=== PATIENT | female | born 1990 | race Caucasian/White ===

== ENCOUNTER 2017-01-26 12:15 | Emergency (ER) | payer OTHER ==
[~2017-01-26] VITALS: Ht 167.6 cm; Wt 79.4 kg
[~2017-01-26 12:15] MED LIST: ACETAMINOPHEN-1 EAC1 PO; AMOXICILLIN 50500 M1 PO; APAP500 PO; BACTRIM DS TAB1 EACH PO; CALAMINE180 ML TP; CIPROFLOXACIN500 M1 PO; CLARITIN10 M2 PO; DOXYCYCLINE 10100 MG PO; FLAGYL500 MG PO; FLEXERIL PO; HYDROCODONE-AP1 EAC6 PO; IBUPROFEN 600600 M1 PO; IBUPROFEN 800800 M1 PO; KEFLEX500 MG PO; LANOLIN56 GM; MACROBID 100 M100 M1 PO; NOHOMEMEDICATIONS; NORCO 5-325 TA1 EACH PO; PERCOCET 5-3251 EACH PO; PHENERGAN 25 MG25 M1 PO; PRENATAL PO; PYRIDIUM200 MG PO; TRAMADOL 50 MG50 MG PO; TUCKS MEDICATE1 EAC1; ULTRAM 50MG TAB50 MG PO; VALIUM2 MG PO; VICODIN 5-5001 EACH PO
[2017-01-26 12:18] VITALS: BP 135/90
== END 2017-01-26 12:41 | disposition left against medical advice (07) ==
LOC: ER 12:15
DX: O26.892 Other specified pregnancy related conditions, second trimester (principal); R35.0 Frequency of micturition; R10.9 Unspecified abdominal pain; M54.5 Low back pain; F17.210 Nicotine dependence, cigarettes, uncomplicated; Z3A.25 25 weeks gestation of pregnancy; Z98.890 Other specified postprocedural states

== ENCOUNTER 2017-07-09 02:23 | Emergency (ER) | payer OTHER ==
[~2017-07-09] VITALS: Ht 167.6 cm; Wt 72.6 kg
[2017-07-09 02:29] VITALS: BP 141/101
[2017-07-09] MEDS ORDERED: NORCO 5-325 TA1 EACH PO (02:36)
[2017-07-09] MEDS ORDERED: PENICILLIN VK500 M1 PO (02:36)
== END 2017-07-09 02:46 | disposition home or self-care (01) ==
LOC: ER 02:23
DX: K02.9 Dental caries, unspecified (principal); K04.7 Periapical abscess without sinus; F17.210 Nicotine dependence, cigarettes, uncomplicated

== ENCOUNTER 2017-07-09 23:45 | Emergency (ER) | payer OTHER ==
[~2017-07-09] VITALS: Ht 167.6 cm; Wt 68.0 kg
[~2017-07-09 23:45] MED LIST changes: +PENICILLIN VK500 M1 PO
[2017-07-09 23:48] VITALS: BP 156/109
== END 2017-07-10 00:28 | disposition home or self-care (01) ==
LOC: ER 23:45
DX: K02.9 Dental caries, unspecified (principal); K04.7 Periapical abscess without sinus; F17.210 Nicotine dependence, cigarettes, uncomplicated; Z90.89 Acquired absence of other organs

== ENCOUNTER 2017-12-17 04:14 | Emergency (ER) | payer OTHER ==
[~2017-12-17] VITALS: Ht 167.6 cm; Wt 67.6 kg
[2017-12-17 04:20] VITALS: BP 125/89
[2017-12-17] MEDS ORDERED: NORCO 5-325 TA1 EACH PO (04:38)
[2017-12-17] MEDS ORDERED: AMOXICILLIN 50500 M1 PO (04:38)
== END 2017-12-17 04:58 | disposition home or self-care (01) ==
LOC: ER 04:14
DX: K02.9 Dental caries, unspecified (principal); F17.210 Nicotine dependence, cigarettes, uncomplicated

== ENCOUNTER 2017-12-21 16:28 | Emergency (ER) | payer OTHER ==
[~2017-12-21] VITALS: Ht 167.6 cm; Wt 65.8 kg
[2017-12-21 16:47] LABS: URINE BILIRUBIN NEGATIVE (Negative); URINE BLOOD TRACE (Negative); URINE CLARITY CLEAR; URINE COLOR YELLOW; URINE GLUCOSE-RANDOM* NEGATIVE (Negative); URINE KETONES NEGATIVE (Negative); URINE LEUKOCYTES-REFLEX NEGATIVE (Negative); URINE NITRITE-REFLEX NEGATIVE (Negative); URINE PROTEIN (DIPSTICK) 1+ (Negative); URINE SPECIFIC GRAVITY 1.025 (1.005-1.035); URINE UROBILINOGEN 0.2 E.U./dl (0.2-1.0)
[2017-12-21 16:55] LABS: CASTS None Seen /LPF (None Seen); MUCUS >6 Heavy strn/LPF (None Seen); SQUAMOUS 4-10 Moderate /LPF (0-3)
[2017-12-21 16:56] LABS: BACTERIA-REFLEX 1-9 Few /HPF (None Seen); CRYSTALS None Seen /LPF (None Seen); URINE WBC-REFLEX 6-15 Few /HPF (0-5)
[2017-12-21 17:24] LABS: ABSOLUTE NEUTROPHILS 9.3 thou/uL (1.4-8.2); BASOPHILS 0.4 % (0.0-2.0); EOSINOPHILS 0.4 % (0.0-3.0); HEMATOCRIT 36.2 % (37.0-47.0); HEMOGLOBIN 12.4 gm/dL (12.0-15.0); LYMPHOCYTES 12.1 % (24.0-44.0); MCH 32.1 pg (26.0-34.0); MCHC 34.2 g/dL (28.0-37.0); MCV 93.9 fL (80.0-100.0); MONOCYTES 10.1 % (1.0-8.0); PLATELET COUNT 281 thou/uL (150-400); RBC 3.85 mil/uL (4.20-5.00); RDW 12.6 % (10.5-14.5); WBC 12.1 thou/uL (4.0-11.0)
[2017-12-21 17:30] LABS: CALCIUM 8.4 mg/dL (8.5-10.1); CREATININE 0.9 mg/dL (0.6-1.0); POTASSIUM 3.1 mmol/L (3.5-5.1)
[2017-12-21] MEDS ORDERED: REGLAN 10 MG TA10 MG PO (18:22)
[2017-12-21] MEDS ORDERED: AUGMENTIN 875-1 EACH PO (18:22)
[2017-12-21 18:32] VITALS: BP 124/72
== END 2017-12-21 18:34 | disposition home or self-care (01) ==
LOC: ER 16:28
PROVIDERS: Physician Assistant
DX: N12 Tubulo-interstitial nephritis, not specified as acute or chronic (principal); E87.6 Hypokalemia; R51 Headache; F17.210 Nicotine dependence, cigarettes, uncomplicated

== ENCOUNTER 2018-11-17 18:41 | Emergency (ER) | payer OTHER ==
[~2018-11-17] VITALS: Ht 167.6 cm; Wt 68.8 kg
[~2018-11-17 18:41] MED LIST changes: +AUGMENTIN 875-1 EACH PO; +CIPRO500 MG PO; +REGLAN 10 MG TA10 MG PO
[2018-11-17 19:14] LABS: HEMATOCRIT 40.2 % (37.0-47.0); HEMOGLOBIN 13.9 gm/dL (12.0-15.0); MCH 32.7 pg (26.0-34.0); MCHC 34.5 g/dL (28.0-37.0); MCV 94.8 fL (80.0-100.0); RBC 4.24 mil/uL (4.20-5.00); WBC 8.9 thou/uL (4.0-11.0)
[2018-11-17 19:24] LABS: ANION GAP 10 mmol/L (7-16); BUN 13 mg/dL (7-18); CALCIUM 9.2 mg/dL (8.5-10.1); CHLORIDE 104 mmol/L (98-107); CO2 28 mmol/L (21-32); CREATININE 0.9 mg/dL (0.6-1.0); GLUCOSE 91 mg/dL (74-106); POTASSIUM 3.5 mmol/L (3.5-5.1); SODIUM 142 mmol/L (136-145)
[2018-11-17 19:33] LABS: TROPONIN-I <0.06 ng/mL (<0.06)
[2018-11-17] MEDS ORDERED: ATIVAN0.5 M1 PO (20:36)
[2018-11-17 21:29] VITALS: BP 130/74
--- NOTE | 2018-11-18 00:06 | EKG ---
[address] [address] ELECTROCARDIOGRAM REPORT Name: ABDULLAHI ZAVALETA Room #: DEP Yonatan#: [id number] ������������������ Admission: 11/17/18 ������������������ Attend Phys: Discharge: 11/17/18 ������������������ Date of : 89 Report #: [id number] ����������������������������������������������������������������� [id number] THIS REPORT FOR: //name// [facility] ED Test Date: 2018-11-17 Test Time: 18:50:27 Pat Name: ABDULLAHI ZAVALETA Department: Room: Gender: F Loading Inspector: SIMON : 1990 Requested By: Laurel Jiménez Order Number: [id number] MD: Adam Luciano Measurements Intervals [place] Rate: 99 P: 74 [place]: 132 QRS: 70 QRSD: 94 T: 62 QT: 370 QTc: 475 Interpretive Statements Sinus rhythm baseline wander Compared to ECG 09/11/2006 23:01:04 No significant changes Electronically Signed On 11-18-2018 0:06:03 CDT by Adam Luciano [email or web address] ��������������������������������������������� <ELECTRONICALLY SIGNED> ���������������������������������������� By: Adam Luciano MD ��������������������������������������������� 11/18/18 0006 1850 1850 Adam Luciano MD /KRISTIE
== END 2018-11-17 21:31 | disposition home or self-care (01) ==
LOC: ER 18:41
PROVIDERS: Emergency Medicine
DX: R07.2 Precordial pain (principal); F17.210 Nicotine dependence, cigarettes, uncomplicated

== ENCOUNTER 2019-07-09 17:10 | Emergency (ER) | payer OTHER ==
[~2019-07-09] VITALS: Ht 167.6 cm; Wt 68.0 kg
[~2019-07-09 17:10] MED LIST changes: +ATIVAN0.5 M1 PO
[2019-07-09 17:32] VITALS: BP 140/93
[2019-07-09] MEDS ORDERED: ERYTHROMYCIN E3.5 G3 OPHTHALMIC (18:22)
== END 2019-07-09 19:07 | disposition home or self-care (01) ==
LOC: ER 17:10
DX: H10.9 Unspecified conjunctivitis (principal); F17.210 Nicotine dependence, cigarettes, uncomplicated; G43.909 Migraine, unspecified, not intractable, without status migrainosus; Z90.89 Acquired absence of other organs

== ENCOUNTER 2019-08-28 09:18 | Emergency (ER) | payer OTHER ==
[~2019-08-28] VITALS: Ht 167.6 cm; Wt 63.5 kg
[~2019-08-28 09:18] MED LIST changes: +ERYTHROMYCIN E3.5 G3 OPHTHALMIC
[2019-08-28] MEDS ORDERED: NORCO 5-325 TA1 EAC1 PO (10:56)
[2019-08-28] MEDS ORDERED: NAPROSYN500 MG PO (10:56)
[2019-08-28] MEDS ORDERED: CLEOCIN HCL300 MG PO (10:56)
[2019-08-28 11:17] VITALS: BP 95/56
== END 2019-08-28 11:37 | disposition home or self-care (01) ==
LOC: ER 09:18
DX: G43.909 Migraine, unspecified, not intractable, without status migrainosus (principal); K08.89 Other specified disorders of teeth and supporting structures; F17.210 Nicotine dependence, cigarettes, uncomplicated; Z90.89 Acquired absence of other organs

== ENCOUNTER 2019-10-10 18:08 | Emergency (ER) | payer OTHER ==
[~2019-10-10] VITALS: Ht 167.6 cm; Wt 68.0 kg
[~2019-10-10 18:08] MED LIST changes: +CLEOCIN HCL300 MG PO; +NAPROSYN500 MG PO; +NORCO 5-325 TA1 EAC1 PO
[2019-10-10] MEDS ORDERED: PROAIR HFA8.5 GM INH (19:30)
[2019-10-10] MEDS ORDERED: DOXYCYCLINE 10100 MG PO (19:30)
[2019-10-10] MEDS ORDERED: TESSALON PERLE100 MG PO (19:30)
[2019-10-10 20:16] VITALS: BP 115/66
== END 2019-10-10 20:10 | disposition home or self-care (01) ==
LOC: ER 18:08
DX: J18.8 Other pneumonia, unspecified organism (principal); G43.909 Migraine, unspecified, not intractable, without status migrainosus; F17.210 Nicotine dependence, cigarettes, uncomplicated; Z90.89 Acquired absence of other organs

== ENCOUNTER 2019-11-19 23:23 | Emergency (ER) | payer OTHER ==
[~2019-11-19] VITALS: Ht 167.6 cm; Wt 63.5 kg
[~2019-11-19 23:23] MED LIST changes: +PROAIR HFA8.5 GM INH; +TESSALON PERLE100 MG PO
[2019-11-20] MEDS ORDERED: BUTALB-APAP-CA1 EACH PO (00:25)
[2019-11-20] MEDS ORDERED: PROVERA10 MG PO (00:25)
[2019-11-20 01:09] LABS: URINE BILIRUBIN NEGATIVE (Negative); URINE BLOOD TRACE (Negative); URINE CLARITY SL CLOUDY; URINE COLOR YELLOW; URINE GLUCOSE-RANDOM* NEGATIVE (Negative); URINE KETONES NEGATIVE (Negative); URINE NITRITE-REFLEX NEGATIVE (Negative); URINE PROTEIN (DIPSTICK) NEGATIVE (Negative); URINE SPECIFIC GRAVITY 1.025 (1.005-1.035); URINE UROBILINOGEN 0.2 E.U./dl (0.2-1.0)
[2019-11-20 01:15] LABS: URINE LEUKOCYTES-REFLEX 1+ (Negative)
[2019-11-20 01:32] LABS: BACTERIA-REFLEX >30 Many /HPF (None Seen); CASTS None Seen /LPF (None Seen); MUCUS 0-3 Light strn/LPF (None Seen); SQUAMOUS 0-3 Few /LPF (0-3); URINE RBC 0-2 Rare /HPF (0-2); URINE WBC-REFLEX 6-15 Few /HPF (0-5)
[2019-11-20 01:33] LABS: CRYSTALS None Seen /LPF (None Seen)
[2019-11-20 01:36] VITALS: BP 132/87
[2019-11-20] MEDS ORDERED: KEFLEX500 M1 PO (01:40)
== END 2019-11-20 01:40 | disposition home or self-care (01) ==
LOC: ER 23:23
PROVIDERS: Emergency Medicine
DX: N93.8 Other specified abnormal uterine and vaginal bleeding (principal); N39.0 Urinary tract infection, site not specified; G43.909 Migraine, unspecified, not intractable, without status migrainosus; F17.210 Nicotine dependence, cigarettes, uncomplicated

== ENCOUNTER 2020-03-02 15:31 | Emergency (ER) | payer OTHER ==
[~2020-03-02] VITALS: Ht 167.6 cm; Wt 78.9 kg
[~2020-03-02 15:31] MED LIST changes: +BUTALB-APAP-CA1 EACH PO; +KEFLEX500 M1 PO; +PROVERA10 MG PO
[2020-03-02 16:53] LABS: ABSOLUTE NEUTROPHILS 7.2 thou/uL (1.4-8.2); BASOPHILS 0.3 % (0.0-2.0); HEMATOCRIT 37.2 % (37.0-47.0); HEMOGLOBIN 12.8 gm/dL (12.0-15.0); MCHC 34.4 g/dL (28.0-37.0); MCV 95.8 fL (80.0-100.0); MONOCYTES 5.8 % (1.0-8.0); PLATELET COUNT 268 thou/uL (150-400); POLYS 68.9 % (36.0-66.0); RBC 3.88 mil/uL (4.20-5.00); RDW 13.1 % (10.5-14.5); WBC 10.4 thou/uL (4.0-11.0)
[2020-03-02 16:55] LABS: CREATININE 0.6 mg/dL (0.6-1.0); POTASSIUM 3.2 mmol/L (3.5-5.1)
[2020-03-02 17:06] LABS: AMP/METHAMP POSITIVE (Negative); BARBITURATES Negative (Negative); BENZODIAZEPINES Negative (Negative); COCAINE Negative (Negative); METHADONE Negative (Negative); OPIATES Negative (Negative); PCP Negative (Negative)
[2020-03-02] MEDS ORDERED: NOHOMEMEDICATIONS (17:22)
[2020-03-03 03:37] VITALS: BP 92/46
== END 2020-03-03 04:43 | disposition home or self-care (01) ==
LOC: ER 15:31
PROVIDERS: Emergency Medicine
DX: O99.322 Drug use complicating pregnancy, second trimester (principal); F15.10 Other stimulant abuse, uncomplicated; Z59.0 Homelessness; O99.352 Diseases of the nervous system complicating pregnancy, second trimester; G43.909 Migraine, unspecified, not intractable, without status migrainosus; O99.332 Smoking (tobacco) complicating pregnancy, second trimester; F17.210 Nicotine dependence, cigarettes, uncomplicated; Z3A.14 14 weeks gestation of pregnancy; Z90.89 Acquired absence of other organs; Z98.51 Tubal ligation status; Z96.22 Myringotomy tube(s) status